=== PATIENT | female | born 1965 | race Caucasian/White ===

== ENCOUNTER 2025-07-03 12:06 | Inpatient (IN) | payer OTHER, SELFPAY ==
[2025-07-03] VITALS (43 sets, daily range): BP systolic 78–128; BP diastolic 40–73; PULSE 63–82; TEMP 36.9–38.4; O2SAT 91–100; BMI 33.8; BMI 34.3
--- NOTE | 2025-07-03 12:36 | ECG_ITS ---
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 Measurements Intervals [place] Rate: 70 P: 78 NV: 146 QRS: 70 QRSD: 68 T: 126 QT: 332 QTc: 352 Interpretive Statements 1100 Sinus rhythm 4068 Nonspecific Twave abnormality 8102 Low QRS voltage in chest leads 8305 Short QTc interval 9150 abnormal ECG No previous ECG available for comparison Electronically Signed On 07-03-2025 18:12:12 EST by ANTONIETTA ROCA M.D.
--- NOTE | 2025-07-03 12:36 | XR_ITS ---
[address] [address] Patient Name: TAO BARNETT MRN: [id number] date: 1965 Sex: F Assigned Patient Location: ER Current Patient Location: ED.MAIN Accession/Order Number: [id number] Exam Date: 07/03/2025 12:53 Report Date: 07/03/2025 13:27 At the request of: RUDY ALTAMIRANO MD Procedure: XR chest 1V PORTABLE AP ERECT CHEST 1255 hours CLINICAL HISTORY: Shortness of breath, fever, chills and weakness COMPARISON: None There is prior median sternotomy. The heart is within normal limits. There is no vascular congestion. The lungs, as visualized, are clear. There is no effusion or pneumothorax. The osseous structures are intact. Subtle scoliotic curvature is noted. XR/XR chest 1V IMPRESSION: NO ACUTE FINDINGS Impression dictated by: Irena Crook M.D. 07/03/2025 1:27 PM Dictation Location: [place] [address] Electronically authenticated by: [id number] Y Date: 07/03/2025 13:27
[2025-07-03 12:52] LABS: Hematocrit 37.1 % (36.0-48.0); Hemoglobin 11.9 g/dL (12.0-16.0); Mean Corpuscular HGB Conc 32.1 g/dL (29.9-35.2); Mean Corpuscular Hemoglobin 29.4 pg (26.7-34.0); Mean Corpuscular Volume 91.6 fL (81.0-99.0); Platelet Count 194 10^3/uL (150-450); Red Blood Count 4.05 10^6/uL (4.20-5.40); White Blood Count 2.4 10^3/uL (4.0-11.0)
[2025-07-03] MEDS: 0.9 % SODIUM CHLORIDE 1,000 ML 1000 ML IV (12:52)
[2025-07-03 13:06] LABS: INR 1.05; Prothrombin Time 11.0 sec (9.0-11.6)
[2025-07-03 13:09] LABS: SARS-CoV-2 Ag NEGATIVE (NEGATIVE)
[2025-07-03 13:10] LABS: Alanine Aminotransferase 30 U/L (14-59); Albumin Globulin Ratio 0.8; Albumin Level 3.6 g/dL (3.4-5.0); Alkaline Phosphatase 105 U/L (46-116); Anion Gap 13.7; Aspartate Amino Transferase 39 U/L (15-37); Blood Urea Nitrogen 20.0 mg/dL (7.0-18.0); Calcium 9.1 mg/dL (8.5-10.1); Carbon Dioxide 27.2 mmol/L (21.0-32.0); Chloride 100 mmol/L (98-107); Estimated GFR (African America 32 (>=60 mL/min/1.73m^2); Estimated GFR (Non-African Ame 27 (>=60 mL/min/1.73m^2); Globulin 4.3 g/dL; Glucose 102 mg/dL (74-106); Lactate/Lactic Acid 1.1 mmol/L (0.4-2.0); Potassium 3.9 mmol/L (3.5-5.1); Sodium 137 mmol/L (136-145); Total Protein 7.9 g/dL (6.4-8.2)
[2025-07-03 13:15] LABS: Band Neutrophils Absolute 0.0 10^3/uL (0.0-0.3); Basophils Abs Manual 0.02 10^3/uL (0.00-0.10); Basophils Percent Manual 1.0 % (0.2-2.0); Eosinophils Absolute Manual 0.00 10^3/uL (0.00-0.70); Eosinophils Percent Manual 0.0 % (0.9-7.0); Lymphocytes Absolute Manual 0.40 10^3/uL (1.20-3.80); Lymphocytes Percent Manual 17.0 % (20.5-60.0); Monocytes Absolute Manual 0.19 10^3/uL (0.30-0.80); Monocytes Percent Manual 8.0 % (1.7-12.0); Segmented Neut Absolute Manual 1.75 10^3/uL (1.4-6.5); Segmented Neutrophils % Manual 73.0 (43.0-75.0)
[2025-07-03 13:58] LABS: NT Pro B Type Natriuretic Pept 310.0 pg/mL (<=900.0)
[2025-07-03 14:27] LABS: Glucose Urine UA NEGATIVE (NEGATIVE)
[2025-07-03 14:44] LABS: Cast Seen? NONE SEEN #/LPF (NONE SEEN); Crystals Seen? None Seen #/HPF (None Seen); Urine Culture Indicated NO
--- NOTE | 2025-07-03 15:11 | ED.WEAKNESS1 ---
HPI - Weakness General Chief complaint: Weakness Stated complaint: CHILLS FEVER WEAKNESS SOB Time Seen by Provider: 07/03/25 12:21 History of Present Illness HPI Narrative: The patient is a 59 years old female presenting to the ER with a concern of dizziness and feeling that she is going to pass out, in addition to no nausea no vomiting but decreased appetite for the last 24 hours and she has been sleeping as well all day yesterday, it was preceded by runny nose. The patient did initially mention some chest pressure but she does not have any pressure at the moment no nausea no vomiting In addition to the dizziness and lightheadedness, the patient mentioned that she was asleep yesterday because she was so tired and not waking up easily. No diarrhea no vomiting Patient takes Bumex because she was told that she retains a lot of fluid but she never had any history of congestive heart failure Patient have a history of carotid disease s/p CABG twice and she also had a stress test done in March that was normal Related Data Home Medications ?Medication ?Instructions ?Recorded ?Confirmed bumetanide 1 mg tablet 1 mg PO BID 07/03/25 07/03/25 clopidogrel 75 mg tablet (Plavix) 75 mg PO DAILY 07/03/25 07/03/25 fluticasone propionate 50 1 inh inhalation BID 07/03/25 07/03/25 mcg/actuation blister powder for inhalation lisinopril 5 mg tablet 5 mg PO DAILY 07/03/25 07/03/25 loratadine 10 mg capsule (Allergy 10 mg PO DAILY PRN allergic 07/03/25 07/03/25 Relief (loratadine)) symptoms rosuvastatin 40 mg tablet 40 mg PO DAILY 07/03/25 07/03/25 semaglutide (weight loss) 0.25 0.25 mg subcut QWEEK 07/03/25 07/03/25 mg/0.5 mL subcutaneous pen injector (Wegovy) Allergies Allergy/AdvReac Type Severity Reaction Status Date / Time atorvastatin Allergy Unknown Unknown Verified 07/03/25 12:19 venlafaxine Allergy Unknown Unknown Verified 07/03/25 12:19 amoxicillin (From Augmentin) AdvReac Severe Vomiting Verified 07/03/25 12:19 clavulanic acid (From AdvReac Severe Vomiting Verified 07/03/25 12:19 Augmentin) tramadol AdvReac Severe suicidal Verified 07/03/25 12:19 Review of Systems ROS Status of ROS 10 or more systems reviewed and unremarkable except as noted in history and below PFSH [facility] Medical History (Updated 07/03/25 @ 15:23 by Katherine Carmichael MD) Hypertension ?I10 - Essential (primary) hypertension (ICD-10) Surgical History (Updated 07/03/25 @ 12:32 by Melisa De La Rosa RN) Status post double vessel coronary artery bypass ?Z95.1 - Presence of aortocoronary bypass graft (ICD-10) History of heart artery stent ?Z95.5 - Presence of coronary angioplasty implant and graft (ICD-10) Social History Little interest or pleasure in doing things: not at all Feeling down, depressed, or hopeless: not at all Exam Narrative Exam Narrative: Nurses notes and vital signs reviewed and patient is not hypoxic. General: Well-appearing and in no apparent distress. Skin: Warm, dry, no pallor noted. No rash. Head: Normocephalic, atraumatic. Neck: Supple, non-tender. Eye: Pupils are equal, round and EOMI. No scleral icterus. Ears, Nose, Mouth, and Throat: TM are clear, no nasal mucosal hypertrophy. Oral mucosa is moist, no posterior oropharynx erythema, uvula is mid-line Cardiovascular: Regular Rate and Rhythm without murmur, gallop or rub. Respiratory: No accessory muscle use or respiratory distress. Lungs are clear to auscultation, no wheezing, rales or rhonchi Musculoskeletal: normal ROM, no calf or popliteal tenderness, no lower extremity edema/swelling GI: Abdomen is soft, non-distended. Normal bowel sounds. No masses appreciated. No tenderness to palpation. No rebound, guarding, or rigidity noted. Neurological: A&O x4. No cranial nerve dysfunction observed. No truncal ataxia. Moves all extremities. Sensation intact. Psychiatric: Cooperative and interactive. Normal mood and affect. Constitutional Vital Signs, click to edit/add: Last Vital Signs Temp 98.4 F 07/03/25 12:12 Pulse 74 07/03/25 15:12 Resp 16 07/03/25 14:40 BP 110/65 07/03/25 15:12 Pulse Ox 96 07/03/25 14:40 O2 Del Method Room Air 07/03/25 12:12 Course Vital Signs Vital signs: Vital Signs Temperature 98.4 F 07/03/25 12:12 Pulse Rate 80 07/03/25 12:12 Respiratory Rate 20 07/03/25 12:12 Blood Pressure 78/40 L 07/03/25 12:12 Pulse Oximetry 98 07/03/25 12:12 Oxygen Delivery Method Room Air 07/03/25 12:12 Temperature 98.4 F 07/03/25 12:12 Pulse Rate 74 07/03/25 15:12 Respiratory Rate 16 07/03/25 14:40 Blood Pressure 110/65 07/03/25 15:12 Pulse Oximetry 96 07/03/25 14:40 Oxygen Delivery Method Room Air 07/03/25 12:12 MDM - Weakness MDM Narrative Medical decision making narrative: The patient EKG in the ER showing sinus rhythm with a heart rate of [address] elevation or depression The patient troponin repeated twice with negative Chest x-ray was normal BNP was not elevated and the CBC and chemistry showed that the patient have leukopenia with a white blood cell 2.4 The patient also have a acute kidney injury with 1.9 creatinine and her baseline usually is normal The patient right now given 1 L of fluid after which she was still orthostatic with blood pressure dropping from 100 systolic to 80 when she standing up The patient COVID and flu test are negative The lactic acid was negative with a 1.1 result The patient does take lisinopril 5 mg which have some effect on blood pressure as well but this is not a new medication With the patient history of coronary artery disease s/p CABG twice the patient will be admitted for observation for possible dehydration Patient case discussed with and he agrees with above-mentioned plan Lab Data Labs: Lab Results 07/03/25 07/03/25 07/03/25 Range/Units 12:40 12:43 14:15 WBC 2.4 L (4.0-11.0) 10^3/uL RBC 4.05 L (4.20-5.40) 10^6/uL Hgb 11.9 L (12.0-16.0) g/dL Hct 37.1 (36.0-48.0) % MCV 91.6 (81.0-99.0) fL MCH 29.4 (26.7-34.0) pg MCHC 32.1 (29.9-35.2) g/dL RDW 13.0 (11.0-15.0) % Plt Count 194 (150-450) 10^3/uL MPV 9.3 L (9.5-13.5) fL Seg Neuts % (Manual) 73.0 (43.0-75.0) Band Neutrophils % 1.0 (0-5) % Lymphocytes % (Manual) 17.0 L (20.5-60.0) % Monocytes % (Manual) 8.0 (1.7-12.0) % Eosinophils % (Manual) 0.0 L (0.9-7.0) % Basophils % (Manual) 1.0 (0.2-2.0) % Neutrophils # (Manual) 1.75 (1.4-6.5) 10^3/uL Band Neutrophils # 0.0 (0.0-0.3) 10^3/uL Lymphocytes # (Manual) 0.40 L (1.20-3.80) 10^3/uL Monocytes # (Manual) 0.19 L (0.30-0.80) 10^3/uL Eosinophils # (Manual) 0.00 (0.00-0.70) 10^3/uL Basophils # (Manual) 0.02 (0.00-0.10) 10^3/uL PT 11.0 (9.0-11.6) sec INR 1.05 Sodium 137 (136-145) mmol/L Potassium 3.9 (3.5-5.1) mmol/L Chloride 100 (98-107) mmol/L Carbon Dioxide 27.2 (21.0-32.0) mmol/L Anion Gap 13.7 BUN 20.0 H (7.0-18.0) mg/dL Creatinine 1.93 H (0.55-1.02) mg/dL Est GFR ( Amer) 32 L (>=60 mL/min/1.73m^2) Est GFR (Non-Af Amer) 27 L (>=60 mL/min/1.73m^2) BUN/Creatinine Ratio 10.4 Glucose 102 (74-106) mg/dL Lactate 1.1 (0.4-2.0) mmol/L Calcium 9.1 (8.5-10.1) mg/dL Total Bilirubin 0.3 (0.2-1.0) mg/dL AST 39 H (15-37) U/L ALT 30 (14-59) U/L Alkaline Phosphatase 105 (46-116) U/L Troponin I High Sens 7.3 (4.0-51.3) pg/mL NT-Pro-B Natriuret Pep 310.0 (<=900.0) pg/mL Total Protein 7.9 (6.4-8.2) g/dL Albumin 3.6 (3.4-5.0) g/dL Globulin 4.3 g/dL Albumin/Globulin Ratio 0.8 Urine Color Lt. yellow (YELLOW) Urine Clarity Clear (CLEAR) Urine pH 8.0 (5.0-9.0) Ur Specific [place] 1.010 (1.005-1.025) Urine Protein 30 A (NEG/TRACE) mg/dL Urine Glucose (UA) Negative (NEGATIVE) mg/dL Urine Ketones Negative (NEGATIVE) mg/dL Urine Occult Blood Negative (NEGATIVE) Urine Nitrite Negative (NEGATIVE) Urine Bilirubin Negative (NEGATIVE) Urine Urobilinogen 0.2 (0.2-1.0) EU/dL Ur Leukocyte Esterase Negative (NEGATIVE) Urine RBC 0-2 (0-2) #/HPF Urine WBC 0-2 A (NONE SEEN) #/HPF Ur Squamous Epith Cells Few A (NONE/RARE) #/LPF Urine Crystals None seen (None Seen) #/HPF Urine Bacteria Trace A (NONE SEEN) #/HPF Urine Casts None seen (NONE SEEN) #/LPF Urine Mucus None seen (NONE SEEN) Ur Culture Indicated? No Influenza Type A Ag Negative Influenza Type B Ag Negative SARS-CoV-2 Ag (CV2AG) Negative (NEGATIVE) 07/03/25 Range/Units 14:28 WBC (4.0-11.0) 10^3/uL RBC (4.20-5.40) 10^6/uL Hgb (12.0-16.0) g/dL Hct (36.0-48.0) % MCV (81.0-99.0) fL MCH (26.7-34.0) pg MCHC (29.9-35.2) g/dL RDW (11.0-15.0) % Plt Count (150-450) 10^3/uL MPV (9.5-13.5) fL Seg Neuts % (Manual) (43.0-75.0) Band Neutrophils % (0-5) % Lymphocytes % (Manual) (20.5-60.0) % Monocytes % (Manual) (1.7-12.0) % Eosinophils % (Manual) (0.9-7.0) % Basophils % (Manual) (0.2-2.0) % Neutrophils # (Manual) (1.4-6.5) 10^3/uL Band Neutrophils # (0.0-0.3) 10^3/uL Lymphocytes # (Manual) (1.20-3.80) 10^3/uL Monocytes # (Manual) (0.30-0.80) 10^3/uL Eosinophils # (Manual) (0.00-0.70) 10^3/uL Basophils # (Manual) (0.00-0.10) 10^3/uL PT (9.0-11.6) sec INR Sodium (136-145) mmol/L Potassium (3.5-5.1) mmol/L Chloride (98-107) mmol/L Carbon Dioxide (21.0-32.0) mmol/L Anion Gap BUN (7.0-18.0) mg/dL Creatinine (0.55-1.02) mg/dL Est GFR ( Amer) (>=60 mL/min/1.73m^2) Est GFR (Non-Af Amer) (>=60 mL/min/1.73m^2) BUN/Creatinine Ratio Glucose (74-106) mg/dL Lactate (0.4-2.0) mmol/L Calcium (8.5-10.1) mg/dL Total Bilirubin (0.2-1.0) mg/dL AST (15-37) U/L ALT (14-59) U/L Alkaline Phosphatase (46-116) U/L Troponin I High Sens 6.9 (4.0-51.3) pg/mL NT-Pro-B Natriuret Pep (<=900.0) pg/mL Total Protein (6.4-8.2) g/dL Albumin (3.4-5.0) g/dL Globulin g/dL Albumin/Globulin Ratio Urine Color (YELLOW) Urine Clarity (CLEAR) Urine pH (5.0-9.0) Ur Specific [place] (1.005-1.025) Urine Protein (NEG/TRACE) mg/dL Urine Glucose (UA) (NEGATIVE) mg/dL Urine Ketones (NEGATIVE) mg/dL Urine Occult Blood (NEGATIVE) Urine Nitrite (NEGATIVE) Urine Bilirubin (NEGATIVE) Urine Urobilinogen (0.2-1.0) EU/dL Ur Leukocyte Esterase (NEGATIVE) Urine RBC (0-2) #/HPF Urine WBC (NONE SEEN) #/HPF Ur Squamous Epith Cells (NONE/RARE) #/LPF Urine Crystals (None Seen) #/HPF Urine Bacteria (NONE SEEN) #/HPF Urine Casts (NONE SEEN) #/LPF Urine Mucus (NONE SEEN) Ur Culture Indicated? Influenza Type A Ag Influenza Type B Ag SARS-CoV-2 Ag (CV2AG) (NEGATIVE) Discharge Plan Discharge Chief Complaint: Weakness Clinical Impression: Acute dehydration, CASEY (acute kidney injury), Hypotension Patient Disposition: Admitted as Observation
--- NOTE | 2025-07-03 15:24 | PM.IMHP1 ---
Internal Medicine - H&P: HPI History of Present Illness Chief complaint: CHILLS FEVER WEAKNESS SOB Narrative: Guerline Danielson is a 59 y/o F, h/o CAD s/p stent placement in 2023, s/p CABG, reported recent stress test, presented to [facility] emergency room on 07/03/2025 with generalized weakness, found to have CASEY and orthostatic hypotension prompting request for medical admission. On assessment at bedside in the emergency room, patient resting comfortably in bed, states developed dry cough, runny nose, and generalized fatigue over the past 24 hours with significant somnolence, dizziness and lightheadedness prompting evaluation in the emergency room. Denies any nausea vomiting or diarrhea, has had slight chest heaviness/fatigue with inspiration but no chest pressure or pain. No dysuria. Has been prescribed Bumex without any form diagnosis of congestive heart failure, has a history of postoperative atrial fibrillation which patient states was resolved after clipping and does not require anticoagulation. In the emergency room, WBC 2.4, hemoglobin 11.9, platelet count 194, band neutrophils 1%, sodium 137, potassium 3.9, BUN 20, creatinine 1.93, lactate 1.1, NT BNP 310, UA without evidence of infection, influenza type A B and COVID-negative, chest x-ray with no acute findings. Review of Systems ROS Status of ROS 10 or more systems reviewed and unremarkable except as noted in history and below [facility] Medical History (Updated 07/03/25 @ 16:28 by JOSE RAFAEL ROMAN MD) Atrial fibrillation ?I48.91 - Unspecified atrial fibrillation (ICD-10) Hypertension ?I10 - Essential (primary) hypertension (ICD-10) Surgical History (Updated 07/03/25 @ 15:33 by SILVANA SMART) History of appendectomy ?Z90.49 - Acquired absence of other specified parts of digestive tract (ICD-10) History of bladder suspension procedure ?Z98.890 - Other specified postprocedural states (ICD-10) ?Z87.448 - Personal history of other diseases of urinary system (ICD-10) History of partial hysterectomy ?Z90.711 - Acquired absence of uterus with remaining cervical stump (ICD-10) Status post double vessel coronary artery bypass ?Z95.1 - Presence of aortocoronary bypass graft (ICD-10) History of heart artery stent ?Z95.5 - Presence of coronary angioplasty implant and graft (ICD-10) Social History Little interest or pleasure in doing things: not at all Feeling down, depressed, or hopeless: not at all Meds Home Medications and Allergies Home Medications ?Medication ?Instructions ?Recorded ?Confirmed ?Type bumetanide 1 mg tablet 1 mg PO BID 07/03/25 07/03/25 History clopidogrel 75 mg tablet (Plavix) 75 mg PO DAILY 07/03/25 07/03/25 History fluticasone propionate 50 1 inh inhalation BID 07/03/25 07/03/25 History mcg/actuation blister powder for inhalation lisinopril 5 mg tablet 5 mg PO DAILY 07/03/25 07/03/25 History loratadine 10 mg capsule (Allergy 10 mg PO DAILY PRN allergic 07/03/25 07/03/25 History Relief (loratadine)) symptoms rosuvastatin 40 mg tablet 40 mg PO DAILY 07/03/25 07/03/25 History semaglutide (weight loss) 0.25 0.25 mg subcut QWEEK 07/03/25 07/03/25 History mg/0.5 mL subcutaneous pen injector (iPowowgovEgodeus) Allergies Allergy/AdvReac Type Severity Reaction Status Date / Time atorvastatin Allergy Unknown Unknown Verified 07/03/25 12:19 venlafaxine Allergy Unknown Unknown Verified 07/03/25 12:19 amoxicillin (From Augmentin) AdvReac Severe Vomiting Verified 07/03/25 12:19 clavulanic acid (From AdvReac Severe Vomiting Verified 07/03/25 12:19 Augmentin) tramadol AdvReac Severe suicidal Verified 07/03/25 12:19 Exam Narrative Exam Narrative: General: cooperative and tired appearing Orientation: alert, awake and oriented x3 Head: normal to inspection Neck: normal visual inspection Cardio: no JVD, regular rate, regular rhythm Chest palpation & inspection: normal inspection of the chest Resp Effort & Inspection: normal respiratory effort Abd: soft, non-tender, non-distended Extremities: Warm well perfused, trace 1+ bilateral pitting edema in LE Constitutional Vital Signs, click to edit/add: Last Vital Signs Temp 98.4 F 07/03/25 12:12 Pulse 74 07/03/25 15:12 Resp 16 07/03/25 14:40 BP 110/65 07/03/25 15:12 Pulse Ox 96 07/03/25 14:40 O2 Del Method Room Air 07/03/25 12:12 Internal Medicine - H&P: Reslt Labs Labs: Short CBC 07/03/25 Range/Units 12:40 WBC 2.4 L (4.0-11.0) 10^3/uL Hgb 11.9 L (12.0-16.0) g/dL Hct 37.1 (36.0-48.0) % Plt Count 194 (150-450) 10^3/uL BMP 07/03/25 12:40 Sodium 137 Potassium 3.9 Chloride 100 Carbon Dioxide 27.2 BUN 20.0 H Creatinine 1.93 H Glucose 102 Calcium 9.1 Liver Function 07/03/25 Range/Units 12:40 Total Bilirubin 0.3 (0.2-1.0) mg/dL AST 39 H (15-37) U/L ALT 30 (14-59) U/L Alkaline Phosphatase 105 (46-116) U/L Albumin 3.6 (3.4-5.0) g/dL Urine 07/03/25 Range/Units 14:15 Urine Color Lt. yellow (YELLOW) Urine Clarity Clear (CLEAR) Urine pH 8.0 (5.0-9.0) Ur Specific [place] 1.010 (1.005-1.025) Urine Protein 30 A (NEG/TRACE) mg/dL Urine Glucose (UA) Negative (NEGATIVE) mg/dL Assessment and Plan Assessment and Plan (1) Hypotension: (2) CASEY (acute kidney injury): (3) Acute dehydration: (4) Hypertension: (5) Status post double vessel coronary artery bypass: (6) History of heart artery stent: (7) Viral URI: Plan Guerline Danielson is a 59 y/o F, h/o CAD s/p stent placement in 2023, s/p CABG with ALAYNA clipping, reported recent stress test, presented to [facility] emergency room on 07/03/2025 with generalized weakness, found to have CASEY and orthostatic hypotension prompting request for medical admission. 1. Hypotension in the setting of likely viral URI - In the emergency room, WBC 2.4, hemoglobin 11.9, platelet count 194, band neutrophils 1%, sodium 137, potassium 3.9, BUN 20, creatinine 1.93, lactate 1.1, NT BNP 310, UA without evidence of infection, influenza type A B and COVID-negative, chest x-ray with no acute findings. - Hold Lasix and plan to discontinue Bumex - Supportive care with additional 1 L LR over 4 hours - Draw blood cultures given leukopenia, monitor overnight for fever - Check echocardiogram 2. h/o CAD s/p stent placement in 2023, s/p CABG with ALAYNA clipping in 05/2024, reported recent stress test - Reports stent placement was in 2023, was previously on brillinta but now on plavix monotherapy - nuclear stress test on 03/19/25 showed no wall motion abnormalities or inducible ischemia Diet: Cardiac Daily Labs: CBC, BMP Lines/Drains: PIV DVT ppx: Lovenox Code status: Full Status: inpatient for rehydration, hypotension
[2025-07-03] MEDS: ACETAMINOPHEN 500 MG TABLET PO (19:32)
[2025-07-03] MEDS: ENOXAPARIN SODIUM 30 MG/0.3 ML SYRINGE SUBQ (20:25)
[2025-07-03] MEDS: CLOPIDOGREL BISULFATE 75 MG TABLET PO (20:25)
[2025-07-04] VITALS (16 sets, daily range): BP systolic 108–158; BP diastolic 62–75; PULSE 59–81; TEMP 36.9–38.1; O2SAT 93–98; BMI 34.3
[2025-07-04] MEDS: ACETAMINOPHEN 325 MG TABLET 650 MG PO (04:33)
[2025-07-04 05:19] LABS: Hematocrit 30.2 % (36.0-48.0); Hemoglobin 9.9 g/dL (12.0-16.0); Mean Corpuscular HGB Conc 32.8 g/dL (29.9-35.2); Mean Corpuscular Hemoglobin 30.0 pg (26.7-34.0); Mean Corpuscular Volume 91.5 fL (81.0-99.0); Platelet Count 136 10^3/uL (150-450); Red Blood Count 3.30 10^6/uL (4.20-5.40); White Blood Count 2.3 10^3/uL (4.0-11.0)
[2025-07-04 05:32] LABS: Anion Gap 7.8; Blood Urea Nitrogen 14.0 mg/dL (7.0-18.0); Calcium 8.1 mg/dL (8.5-10.1); Carbon Dioxide 23.2 mmol/L (21.0-32.0); Chloride 109 mmol/L (98-107); Estimated GFR (African America 53 (>=60 mL/min/1.73m^2); Estimated GFR (Non-African Ame 43 (>=60 mL/min/1.73m^2); Glucose 108 mg/dL (74-106); Magnesium 2.2 mg/dL (1.8-2.4); Potassium 4.0 mmol/L (3.5-5.1); Sodium 136 mmol/L (136-145)
[2025-07-04 05:48] LABS: Segmented Neut Absolute Manual 1.72 10^3/uL (1.4-6.5); Segmented Neutrophils % Manual 75.0 (43.0-75.0)
[2025-07-04 05:49] LABS: Atypical Lymphocytes % Manual 1.0 %; Atypical Lymphocytes Abs Man 0.02; Basophils Abs Manual 0.00 10^3/uL (0.00-0.10); Basophils Percent Manual 0.0 % (0.2-2.0); Eosinophils Absolute Manual 0.00 10^3/uL (0.00-0.70); Eosinophils Percent Manual 0.0 % (0.9-7.0); Lymphocytes Absolute Manual 0.36 10^3/uL (1.20-3.80); Lymphocytes Percent Manual 16.0 % (20.5-60.0); Monocytes Absolute Manual 0.18 10^3/uL (0.30-0.80); Monocytes Percent Manual 8.0 % (1.7-12.0)
--- NOTE | 2025-07-04 10:07 | CM.NOTE ---
Rounds made with Dr. Rosales, discussed plan of care with pt. Plan is for discharge today once ECHO results and throat swab results are received.
--- OUTSIDE RECORDS SUMMARY | 2025-07-04 12:59 | XMS_ITS | Clinical Summary ---
Author Organization [employer] tem Address [id number] [address] [place] [address] Care Team Providers Care House Worker Name Role Phone No Pcp, No Pcp Primary Care Provider Unavailabl e Allergies Active AllergyReactionsCriticalityNoted DateCommentsAtorvastatinOther (See Comments)01/12/2018 myalgia Amoxicillin-Pot BxcqhdwfkscGaiwvvrq10/29/0179Omozhtdp59/21/2020 Caused her to become suicidal Xiqugvaddfu02/16/2023 Medications MedicationSigDispense QuantityRefillsLast FilledStart DateEnd DateStatus loratadine (CLARITIN) 10 mg tablet Take 1 tablet (10 mg total) by mouth as needed for allergies.Active ezetimibe (ZETIA) 10 mg tablet Take 1 tablet (10 mg total) by mouth nightly.Active fluticasone propionate (FLONASE) 50 mcg/actuation nasal spray Administer 1 spray into each nostril as needed for allergies.Active rosuvastatin (CRESTOR) 40 mg tablet Take 1 tablet (40 mg total) by mouth in the morning.4Active potassium chloride (KLOR-CON M 10) 10 MEQ CR tablet Take 1 tablet (10 mEq total) by mouth in the morning.5Active clopidogreL (PLAVIX) 75 mg tablet Take 1 tablet (75 mg total) by mouth in the morning. 90 tablet 5Active lisinopriL (PRINIVIL,ZESTRIL) 5 mg tablet Indications:Primary hypertensionTake 1 tablet (5 mg total) by mouth in the morning. 30 tablet 1105Active bumetanide (BUMEX) 1 mg tablet Take 1 tablet (1 mg total) by mouth 2 (two) times a day before meals. 60 tablet 5Active semaglutide, weight loss, (WEGOVY) 0.5 mg/0.5 mL pen injector Indications:Coronary artery disease of [place] artery of [place] heart with stable angina pectoris,Coronary artery disease involving [place] coronary artery of [place] heart with refractory angina pectoris,ST elevation myocardial infarction involving right coronary artery (CMS-HCC),History of percutaneous coronary interventionInject 0.5 mL (0.5 mg total) under the skin every 7 days. 2 mL 5Active semaglutide, weight loss, (WEGOVY) 0.25 mg/0.5 mL pen injector Indications:Coronary artery disease of [place] artery of [place] heart with stable angina pectoris,Coronary artery disease involving [place] coronary artery of [place] heart with refractory angina pectoris,ST elevation myocardial infarction involving right coronary artery (CMS-HCC),History of percutaneous coronary interventionInject 0.5 mL (0.25 mg total) under the skin every 7 days. 2 mL Discontinued(Dose adjustment) Active Problems ProblemNoted DateDiagnosed DateChest pain in adult03/18/2025Long term (current) use of uihahlammbbzcd34/31/2025trial fibrillation, unspecified type06/08/2024 Chest pain, unspecified type06/05/2024cute blood loss mkcjka6405/29/2024cute respiratory failure with irsizax9405/29/2024Hemodynamic whwcfrfyqog63/13/2024 Volume kxucgcwlr47/13/2024AD (coronary artery disease)05/24/2024oronary artery disease involving [place] coronary artery with refractory angina pectoris 05/14/20240114Szawymsik48/10/2018History of suicide vdpniia5501/05/2018Prediabetes 01/05/2018*OBGYN Prcvriwckm88/15/2017Abnormal cytological findings in specimens from other organs, systems and owkpmcs3106/03/2016Encounter for gynecological examination without abnormal gdfcpgu6106/03/2016Stress xkfgquwzeaqz58/18/2016 Rquldvygxdtuo38/18/8730Uujrlwdovycfac87/18/9034Xrgkwszmgctq18/18/2016Heart ayfras1008/03/2015Mixed umfqeltlthhz94/18/4870Tbkcdtnw88/18/1320Wvgzfpna69/18/2016 Cyst of ovary06/03/2016Nicotine mbfcexfrfa76/18/2016Anxiety Resolved Problems ProblemNoted DateDiagnosed DateResolved DateBipolar affective ilzkkcut50/18/2016 09/27/2016 Encounters DateTypeDepartmentCare HcltDfzwifafsvh54/09/2025Telephone [facility] Medication Management [address] [place] [address] Jv Parra [facility] 06/10/2025Telephone [facility] Medication Management [address] [place] [address] Jv Parra, [facility] 06/04/2025 8:15 AM ESTClinical Support [facility] Medication Management [address] [place] [address] Coronary artery disease of [place] artery of [place] heart with stable angina pectoris [I25.118] (Primary Dx); Coronary artery disease involving [place] coronary artery of [place] heart with refractory angina pectoris; ST elevation myocardial infarction involving right coronary artery ([facility]); History of percutaneous coronary sxgzoydgugcd14/17/5387Dbzbte52/11/2025Orders Only [facility] [address] [place] [address] Lisandra Iniguez, RN 05/26/20259895Zibcyg60/30/2025 7:15 AM EDTOffice Visit [facility] [address] [place] [address] Dwayne Altman, BIAS CUTTING MACHINE OPERATOR VERTICAL-JEROD Coronary artery disease involving [place] coronary artery of [place] heart without angina pectoris (Primary Dx); Primary hypertension; Atrial fibrillation, unspecified type ([facility]); Mixed vwtelnbdkusspo40/30/2025Telephone [facility] Medication Management [address] [place] [address] Dayana Anthony MA 05/15/20259565Wqpwoq82/28/4315Hlzfpi12/21/2025Results Follow-Up [facility] [address] [place] [address] Kristyn Herron LPN Basic Metabolic Panel, BNP, Magnesium, Lipid panel05/01/20258650Rhcsiu97/02/2025 7:45 AM EDTOffice Visit [facility] [address] [facility] [address] [place] [address] Dwayne Altman APRN-[employer] E[employer]OR Coronary artery disease involving [place] coronary artery of [place] heart without angina pectoris (Primary Dx); Atrial fibrillation, unspecified type ([facility]); Primary hypertension; Mixed hyperlipidemia; Coronary artery disease involving coronary bypass graft of [place] heart without angina pbuhhyrg87/01/5124Nxpwoe92/24/1035Fmpwej18/22/2025Telephone [facility] [address] [facility] [address] [place] [address] Kristyn Herron LPN retaining waterfrom Last 3 Months Immunizations ImmunizationAdministration DatesNext DueInfluenza (IM) Preservative Free 05/19/2008Influenza, Qrgexqpepvl64/28/2019Pneumococcal Vsrfkmplesrsia80/19/2012 Tdap01/12/2018,12/28/2007 Family History * Patient is adopted Medical HistoryRelationNameCommentsCoronary artery diseaseMaternal Grandfather CancerMaternal GrandmotherNeoplasmMaternal GrandmotherOvarian cancerMaternal GrandmotherCancerMotherNeoplasmMothermalignantOvarian cancerMotherRelationName StatusCommentsMaternal GrandfatherMaternal GrandmotherMother Social History Tobacco UseTypesPacks/DayYears UsedDateSmoking Tobacco: FormerCigarettes Smokeless Tobacco: Never Tobacco Cessation:Counseling Given: Not Answered Alcohol UseStandard Drinks/WeekCommentsYes0 (1 standard drink = 0.6 oz pure alcohol)[facility] UtilitiesAnswerDate RecordedIn the past 12 months has the electric, gas, oil, or water company threatened to shut off services in your home?No06/05/2024UDIT-CAnswerDate RecordedQ1: How often do you have a drink containing alcohol?2-4 times a month06/05/2024Q2: How many drinks containing alcohol do you have on a typical day when you are drinking?1 or Q3: How often do you have six or more drinks on one occasion?Never06/05/2024HQ-2 AnswerDate RecordedTotal Xirun25008/05/2023RAPARE - TransportationAnswerDate RecordedIn the past 12 months, has lack of transportation kept you from medical appointments or from getting medications?No06/05/2024In the past 12 months, has lack of transportation kept you from meetings, work, or from getting things needed for daily living?No06/05/2024Housing InstabilityAnswerDate RecordedAre you worried or concerned that in the next two months you may not have stable housing that you own, rent or stay in as a part of a household?No06/05/2024 ChildcareAnswerDate VrxcjlqdYaukqtxmlRpnkqnm39/11/2019EmploymentAnswerDate SrcmyeglPbxzjihkfdFzpfgzc76/11/2019Hunger ScreeningAnswerDate RecordedWithin the past 12 months we worried whether our food would run out before we got money to buy more.Never True03/18/2025Within the past 12 months the food we bought just didn't last and we didn't have money to get more.Never True03/18/2025Purpose - LifeAnswerDate RecordedPurpose and direction in jgnjIgwybaf30/10/2021 CommentsNoSex and Gender InformationValueDate RecordedSex Assigned at BirthNot on fileLegal JjbNnhtkv49/04/2015 7:30 PM EDTGender IdentityNot on fileSexual OrientationNot on file Last Filed Vital Signs Vital SignReadingTime TakenCommentsBlood Thkwtfru178/7311 8:14 AM EST Aenye930706/04/2025 8:14 AM JZRAvsxiybqcew95.1 ??C (98.8 ??F)03/19/2025 12:10 PM EDTRespiratory Uftn381303/19/2025 12:10 PM EDTOxygen Hltzvsttvl24%05/15/2025 7:02 AM EDTInhaled Oxygen Concentration--Btzxiz42.1 kg (189 lb 12.8 oz)06/04/2025 8:14 AM YPEFvoyqa257.5 cm (5' 2.01 )05/15/2025 7:02 AM EDTBody Mass Index34.71 05/15/2025 7:02 AM EDT Plan of Treatment DateTypeDepartmentCare Team (Latest Contact Info)Ndymkcokqzc98/05/2026 2:00 PM ESTOffice Visit [facility] [address] [place] [address] Facundo Cabrera PA-C [address] [place] [address] Health MaintenanceDue DateLast DoneCommentsAdult BMI Follow Up Plan10/15/1985 Zoster (Shingles) Vaccine (1 of 2)10/15/2017Influenza Ftwkjyw8103/17/2025 05/13/2019, 05/19/2008Depression Jbprpgqly94Tobacco Screening dult BMI Hmnwvrspu61DTaP,Tdap and Td Vaccines (3 - Td or Tdap), 12/28/2007 Goals GoalPatient Goal TypeAssociated ProblemsRecent ProgressPatient-Stated?Author <enter goal here> Key Mckeon, RN Note: Evaluation of progress towards goal: plan home with homecare and family support vs short snf stay Medical Devices ImplantedTypeAreaManufacturerDevice IdentifierShelf Expiration DateModel / Serial / LotDevice Clsr 45mm Penditure Tip First Slf Closing Strl - [id number] Implanted:Qty: 1 on 05/29/2024 [facility] ClipN/A: HeartMEDTRONIC HEART07/03/2024LAAC45 / / [id number]:left atrial appendage Procedures Procedure NamePriorityDate/TimeAssociated DiagnosisCommentsLIPID PROFILERoutine 05/01/2025 7:52 AM EDT Mixed hyperlipidemia YADVNRULYCxqaggd95/16/2025 7:52 AM EDT Coronary artery disease involving [place] coronary artery of [place] heart without angina pectoris B-TYPE NATRIURETIC CRFNFWNFzhtpzs43/16/2025 7:52 AM EDT Coronary artery disease involving [place] coronary artery of [place] heart without angina pectoris BASIC METABOLIC ZSIUQXscxfpj35/16/2025 7:52 AM EDT Coronary artery disease involving [place] coronary artery of [place] heart without angina pectoris BASIC METABOLIC FMNGVFyctntp63/24/2025 8:09 AM EDT Atrial fibrillation, unspecified type (CMS-HCC) from Last 3 Months Results * BNP (05/01/2025 7:52 AM EDT)ComponentValueRef RangeTest MethodAnalysis Time Performed AtPathologist GmpimogspBGG84<=100 pg/mL05/01/2025 9:14 AM [facility] LABORATORYSpecimen (Source)Anatomical Location / Laterality Collection Method / VolumeCollection TimeReceived TimeBloodVenous blood / UnknownVenipuncture / Ctquyhc3705/01/2025 7:52 AM EDT1 7:52 AM EDT Narrative Authorizing ProviderResult TypeResult StatusMischell Agapito BIAS CUTTING MACHINE OPERATOR VERTICAL-CNPLAB BLOOD ORDERABLESFinal ResultPerforming OrganizationAddressCity/State/ZIP CodePhone Number [facility] [address] [place] [address], * Magnesium (05/01/2025 7:52 AM EDT)ComponentValueRef RangeTest MethodAnalysis TimePerformed AtPathologist SignatureMAGNESIUM2.41.8 - 2.6 mg/dL05/01/2025 11:43 AM [facility] LABORATORYSpecimen (Source)Anatomical Location / LateralityCollection Method / VolumeCollection TimeReceived Time BloodVenous blood / UnknownVenipuncture / Ggnvynx7105/01/2025 7:52 AM EDT 05/01/2025 7:52 AM EDT Narrative Authorizing ProviderResult TypeResult StatusMischUpstate Golisano Children's Hospitalsser BIAS CUTTING MACHINE OPERATOR VERTICAL-CNPLAB BLOOD ORDERABLESFinal ResultPerforming OrganizationAddressCity/State/ZIP CodePhone Number [facility] [address] [place] [address], * (ABNORMAL) Lipid panel (05/01/2025 7:52 AM EDT)ComponentValueRef RangeTest MethodAnalysis TimePerformed AtPathologist SsnohlgaeEXEDEIZESHS101(L)150 - 200 mg/dL05/01/2025 11:43 AM [facility] LABORATORYTRIGLYCERIDE 181(H)27 - 150 mg/dL05/01/2025 11:43 AM [facility] HDL IWTLJCNVRDY52>39 mg/dL05/01/2025 11:43 AM [facility] LABORATORYComment: HDL <40 mg/dL - High Risk HDL > or = 40mg/dL- Desirable HDL >60 mg/dL - Negative Risk LDL (CALC)62<130 mg/dL05/01/2025 11:43 AM [facility] Comment: LDL <100 mg/dL - Desirable LDL >160 mg/dL - High Risk CHOLESTEROL:HDL3.01.0 - 5.010 11:43 AM [facility] LABORATORYVERY LOW IUGVUSVIWIE78(H)0 - 30 mg/dL05/01/2025 11:43 AM [facility] LABORATORYSpecimen (Source)Anatomical Location / Laterality Collection Method / VolumeCollection TimeReceived TimeBloodVenous blood / UnknownVenipuncture / Gkplqrh2105/01/2025 7:52 AM EDT1 7:52 AM EDT Narrative Authorizing ProviderResult TypeResult StatusMischell Agapito BIAS CUTTING MACHINE OPERATOR VERTICAL-CNPLAB BLOOD ORDERABLESFinal ResultPerforming OrganizationAddressCity/State/ZIP CodePhone Number [facility] [address] [place] [address], * (ABNORMAL) Basic Metabolic Panel (05/01/2025 7:52 AM EDT) Only the most recent of2 resultswithin the time period is included. ComponentValueRef RangeTest MethodAnalysis TimePerformed AtPathologist Signature SNYCQI389753 - 146 mmol/L1 11:43 AM [facility] LABORATORYPOTASSIUM4.33.5 - 5.0 mmol/L1 11:43 AM [facility] MKXGHPJUMIXQYMFBXA01731 - 109 mmol/L1 11:43 AM [facility] LABORATORYCARBON CISKISY45(H)22 - 32 mmol/L1 11:43 AM [facility] LABORATORYANION GAP65 - 15 mmol/L1 11:43 AM [facility] LABORATORYBLOOD UREA OBROZOLC193 - 23 mg/dL 05/01/2025 11:43 AM [facility] LABORATORYCREATININE1.18(H)0.40 - 1.00 mg/dL05/01/2025 11:43 AM [facility] LABORATORYComment: METHOD TRACEABLE TO IDLA DOZHAWMMDSWPWKS769(H)65 - 99 mg/dL05/01/2025 11:43 AM [facility] LABORATORYCALCIUM9.88.5 - 10.5 mg/dL05/01/2025 11:43 AM [facility]ORYEGFR Non-Race Pwotelhmu93(L)>=60 ml/min/1.73sq.m1 11:43 AM [facility] Comment: Reported eGFR is based on the CKD-EPI 2020 equation that does not use a race coefficient. Specimen (Source)Anatomical Location / LateralityCollection Method / Volume Collection TimeReceived TimeBloodVenous blood / UnknownVenipuncture / Unknown 05/01/2025 7:52 AM EDT1 7:52 AM EDT Narrative Authorizing ProviderResult TypeResult StatusMischmarc Agapito BIAS CUTTING MACHINE OPERATOR VERTICAL-CNPLAB BLOOD ORDERABLESFinal ResultPerforming OrganizationAddressCity/State/ZIP CodePhone Number [facility] [address] [place] [address], [place] [phone] from Last 3 Months Insurance Advance Directives TypeDate RecordedPatient RepresentativeExplanationDurable Power of Wire Weaving Loom Setter 06/10/2024 8:28 AM * Full Code (Latest Code Status on File) Date ActivatedDate InactivatedComments03/18/2025 11:56 PM03/19/2025 5:10 PM * Full Code Date ActivatedDate SqfadvblvxeYmjgtqii12/20/2024 9:23 AM06/08/2024 5:53 PM * Full Code Date ActivatedDate EqxvbbiyrpyNcommgfm79/11/2024 9:10 AM06/04/2024 3:14 PM Care Teams Team MemberRelationshipSpecialtyStart DateEnd Date No Pcp, [place] [address] PCP - GeneralFamily Medicine03/18/25
--- OUTSIDE RECORDS SUMMARY | 2025-07-04 12:59 | XMS_ITS | Clinical Summary ---
Author Organization [facility] Address [address], [address] [place] [address] Care Team Providers Care Medical Record Assistant Name Role Phone Unavailable Primary Care Provider Unavailabl e Allergies Active AllergyReactionsCriticalityNoted DateCommentsAmoxicillin-Pot Clavulanate 12/30/2022 GI symptoms Zjsvgdhwxpz29/16/2023torvastatinOther (See Comments)01/12/2018 myalgia CrenmerKayntixhjp65/24/2024 Nausea Medications MedicationSigDispense QuantityRefillsLast FilledStart DateEnd DateStatus loratadine (CLARITIN) 10 MG tablet Take 1 tablet by mouth dailyActive fluticasone (FLONASE) 50 MCG/ACT nasal spray Indications:Seasonal allergic rhinitis, unspecified trigger2 sprays by Nasal route daily as needed for Rhinitis or Allergies 1 each ctive Additional Information Patient not taking.Reported on 11/05/2024 nitroGLYCERIN (NITROSTAT) 0.[address] 1 tablet under the tongue every 5 minutes as needed for Chest pain up to max of 3 total doses. If no relief after 1 dose, call 911. 25 tablet ctive fluconazole (DIFLUCAN) 150 MG tablet as hodjpe7603/20/2024ctive warfarin (COUMADIN) 2 MG tablet Take by mouth06/08/2024ctive amLODIPine (NORVASC) 10 MG tablet Take 1 tablet by mouth daily 90 tablet 5Active clopidogrel (PLAVIX) 75 MG tablet Take 1 tablet by mouth daily 90 tablet 5Active furosemide (LASIX) 20 MG tablet Take 1 tablet by mouth 2 times daily Take lasix 20 mg po bid x 5 days then 20 mg po daily 90 tablet 5Active apixaban (ELIQUIS) 5 MG TABS tablet Take 1 tablet by mouth 2 times daily 180 tablet 5Active carvedilol (COREG) 3.125 MG tablet Take 1 tablet by mouth 2 times daily 60 tablet 5Active ezetimibe (ZETIA) 10 MG tablet TAKE 1 TABLET BY MOUTH ONCE NIGHTLY 30 tablet 1105Active rosuvastatin (CRESTOR) 40 MG tablet TAKE ONE TABLET BY MOUTH EVERY EVENING 30 tablet 905Active potassium chloride (KLOR-CON M) 10 MEQ extended release tablet TAKE 1 TABLET BY MOUTH 2 TIMES A DAY 180 tablet 5Active Active Problems ProblemNoted DateDiagnosed DateAcute myocardial rzwiakowzx61/18/4465C57 zfplchnyuj11/21/2023On hormone replacement uxlqgye0012/30/2022llergic rhinitis 09/06/20196542Vsdcbnjwrnvgff44/22/2018Heart ourrtb4801/05/2018Vitamin D deficiency 01/05/20188862Mpuxlfnzuwc55/22/2018History of suicide pjrvvvd4101/05/2018 Resolved Problems ProblemNoted DateDiagnosed DateResolved DateNausea and tpqdaave33/22/2018 01/12/20189424Uqzsjdpn22/22/LLQ painDizziness Weight loss, zdbmctzedcgic04History of jmbzrczpbr85Smoker unmotivated to quit Encounters DateTypeDepartmentCare SpmlBnlasqeygkm31/17/2025Refill [place] 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 - [place] [address], [address] [place] [address] Regina Ramos, 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 Medication Refillfrom Last 3 Months Immunizations ImmunizationAdministration DatesNext DueInfluenza Vaccine, unspecified djbpvaesbse60/03/2008Influenza Virus Dbbusxs5705/13/2019Pneumococcal, PPSV23, PNEUMOVAX 23, (age 2y+), SC/IM, 0.5mL08/04/2011TDaP, ADACEL (age 10y-64y), BOOSTRIX (age 10y+), IM, 0.5mL01/12/2018,12/28/2007 Family History * Patient is adopted Medical HistoryRelationNameCommentsHeart DiseaseMaternal GrandfatherNonOther Maternal GrandfatherNonAlcholismCancerMaternal GrandmotherNooviarianAlcohol AbuseMotherNoCancerPaternal GrandmotherNouterianRelationNameStatusComments Maternal GrandfatherNonMaternal GrandmotherNoMotherNoPaternal GrandmotherNo Social History Tobacco UseTypesPacks/DayYears UsedDateSmoking Tobacco: JaphdiAmdjfmfymy666.6 1999 - 02/08/2023Smokeless Tobacco: Never Tobacco Cessation:Counseling Given: Not Answered Alcohol UseStandard Drinks/WeekCommentsYes0 (1 standard drink = 0.6 oz pure alcohol)[facility] UtilitiesAnswerDate RecordedIn the past 12 months has the [employer], oil, or water [place] threatened to shut off services in your home?No05/03/2024Humiliation, Afraid, Rape, and Kick questionnaireAnswerDate RecordedWithin the last year, have you been afraid of your partner or ex-partner?No12/28/2022Within the last year, have you been humiliated or emotionally abused in other ways by your partner or ex-partner?No12/28/2022 Within the last year, have you been kicked, hit, slapped, or otherwise physically hurt by your partner or ex-partner?No12/28/2022Within the last year, have you been raped or forced to have any kind of sexual activity by your part ner or ex-partner?No12/28/2022Overall Financial Resource Strain (CARDIA)Answer Date RecordedHow hard is it for you to pay for the very basics like food, housing, medical care, and heating?Not hard at all12/30/2022HQ-2AnswerDate RecordedPHQ-9 Total Clbko578Exercise Vital SignAnswerDate RecordedOn average, how many days per week do you engage in moderate to strenuous exercise (like a brisk walk)?0 days12/28/2022Minutes of Exercise per SessionNot on file 12/28/2022Hunger Vital SignAnswerDate RecordedWithin the past 12 months, you worried that your food would run out before you got the money to buymore.Never true05/03/2024Within the past 12 months, the food you bought just didn't last and you didn't have money to get more.Never true05/03/2024RAPARE - TransportationAnswerDate RecordedIn the past 12 months, has lack of transportation kept you from medical appointments or from getting medications?No 05/03/2024In the past 12 months, has lack of transportation kept you from meetings, work, or from getting things needed for daily living?No05/03/2024 Housing Stability Vital SignAnswerDate RecordedUnable to Pay for Housing in the Last YearNot on file12/30/2022Number of Places Lived in the Last YearNot on file 12/30/2022In the last 12 months, was there a time when you did not have a steady place to sleep or slept in [facility] (including now)?No12/30/2022Housing Stability Vital SignAnswerDate RecordedIn the last 12 months, was there a time when you were not able to pay the mortgage or rent on time?No05/03/2024In the past 12 months, how many times have you moved where you were living? At any time in the past 12 months, were you homeless or living in a halfway (including now)?No05/03/2024Food InsecurityAnswerDate RecordedWithin the past 12 months, you worried that your food would run out before you got the money to buy more.Within the past 12 months, the food you bought just didn't last and you didn't have money to get more.Interpersonal Safety Domain Source: IP Abuse ScreeningAnswerDate RecordedPhysical scpktJevzju11/18/2024 Verbal cmqkrMoyjys50/18/2024Emotional tiubjKnekqz01/18/2024Financial abuseDenies 05/03/2024Sexual yfhsrJkrgkt42/18/2024CommentsNoSex and Gender InformationValueDate RecordedSex Assigned at NjdiaFxzvuf84/14/2023 6:51 PM EDT Legal FwjSmlagx69/10/2013 5:36 PM ESTGender XvywurdoFmdzms77/14/2023 6:51 PM EDT Sexual OrientationNot on file Last Filed Vital Signs Vital SignReadingTime TakenCommentsBlood Hryhlpkj217/7404 8:59 AM EDT Eppei7022/22/2025 8:59 AM ELZThyrzadpeol06 ??C (98.6 ??F)05/05/2024 11:40 AM EDT Respiratory Xbvg186111/05/2024 8:59 AM EDTOxygen Geraeijqdi70%11/05/2024 8:59 AM EDTInhaled Oxygen Concentration--Ejguej27.8 kg (167 lb)11/05/2024 8:59 AM EDT Fdqfkh406.5 cm (5' 2 )11/05/2024 8:59 AM EDTBody Mass Index30.54011/05/2024 8:59 AM EDT Plan of Treatment Health MaintenanceDue DateLast DoneCommentsDepression Lhhpjb2810/16/1979Hepatitis C wdanfb3010/15/1985Hepatitis B vaccine (1 of 3 - 19+ 3-dose series)10/15/1986 Pneumococcal 50+ years Vaccine (2 of 2 - PCV)Colonoscopy 10/15/2012Colorectal Cancer Pfgsdn0210/15/2012FIT/FOBT: Average risk10/15/2012 Fecal-DNA (Cologuard): Average risk10/15/2012Sigmoidoscopy/CT colonography 10/15/2012Lung Cancer Screening &/or Karwqgsijr49/01/2018Shingles vaccine (1 of 2)10/15/2017Breast cancer awkviw85, 01/09/2013A1C test (Diabetic or Prediabetic)/, 08/31/2019, 03/09/2019, Additional history existsFlu vaccine (#1)51, 05/19/2008COVID- 19 Vaccine ( season)03/17/20256182Egjzei36/12/369507/06/2025, 08/05/2023, 01/04/2023, Additional history existsDTaP/Tdap/Td vaccine (3 - Td or Tdap) 806/, 12/28/2007HIV lmdtws2008/21/2029Postponed from 10/15/1982 (Patient Refused)Pneumococcal 0-49 years HbkclolJsnejrifyvny06/19/2012Hepatitis A vaccineAged OutNo longer eligible based on patient's age to complete this topicHib vaccineAged OutNo longer eligible based on patient's age to complete this topicMeningococcal (ACWY) vaccineAged OutNo longer eligible based on patient's age to complete this topicMeningococcal B vaccineAged OutNo longer eligible based on patient's age to complete this topicPolio vaccineAged OutNo longer eligible based on patient's age to complete this topic Medical Devices ImplantedTypeAreaManufacturerDevice IdentifierShelf Expiration DateModel / Serial / LotStent Coronary Abdulkadir Glasscock Rx 3x38 Mm Zotarolimus Elut - [id number] Implanted:Qty: 1 on 05/03/20[facility]MEDTRONIC VASCULAR-[id number]/10/2026 [id number] / / [id number] Coronary Abdulkadir Glasscock Rx 3x18 Mm Zotarolimus Elut - [id number] Implanted:Qty: 1 on 05/03/2024 [facility] stentsMEDTRONIC VASCULAR-[id number]/09/2026 [id number] / / [id number] Coronary [place] Glasscock Rx 3x26 Mm Zotarolimus Elut - [id number] Implanted:Qty: 1 on 05/03/2024 [facility] stentsMEDTRONIC VASCULAR-[id number]/ [id number] / / [id number] Procedures Procedure NamePriorityDate/TimeAssociated DiagnosisCommentsLIPID PANELRoutine 09/25/2024 8:05 AM EDT Pure hypercholesterolemia HEMOGLOBIN D2JSpcxwfi32/15/2020 Preventative health care KADEN DIGITAL SCREEN W OR WO CAD QLRSRMZHRAbecvcb51/12/2018 1:21 PM EDT Screening mammogram, encounter for from Last 3 Months or Most Recently Relevant to Health Maintenance Results * Lipid Panel (09/25/2024 8:05 AM EDT)ComponentValueRef RangeTest MethodAnalysis TimePerformed AtPathologist SignatureCholesterol, Slbbm8902 - 199 mg/dL 09/25/2024 8:05 AM EDTMERCY LABORATORIESComment: Cholesterol Guidelines: <200 Desirable 200-240 ??Borderline >240 Undesirable HDL67>40 mg/dL09/25/2024 8:05 AM EDTMERCY LABORATORIESComment: HDL Guidelines: <40 Undesirable 40-59 ?Borderline >59 Desirable LDL Jzbwyxgrron198 - 100 mg/dL09/25/2024 8:05 AM EDTMERCY LABORATORIESComment: LDL Guidelines: <100 Desirable 100-129 ?? Near to/above Desirable 130-159 ?? Borderline >159 Undesirable Direct (measured) LDL and calculated LDL are not interchangeable tests. Chol/HDL Ratio2.503 8:05 AM EDTMERCY TEKMVQBCHUIGYtxdhigkbeqcd898<150 mg/dL09/25/2024 8:05 AM EDTMERCY LABORATORIESComment: Triglyceride Guidelines: <150 Desirable 150-199 ??Borderline 200-499 ??High >499 Very high Based on AHA Guidelines for fasting triglyceride, April 2012. HKNP700 - 30 mg/dL09/25/2024 8:05 AM EDTMERCY LABORATORIESSpecimen (Source) Anatomical Location / LateralityCollection Method / VolumeCollection Time Received TimeBloodBLOOD SPECIMEN / Njvufln6109/25/2024 8:05 AM EDT09/25/2024 8:10 AM EDT Narrative Authorizing ProviderResult TypeResult StatusRegina Ramos 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 - NPCHEMISTRY ORDERABLESFinal ResultPerforming OrganizationAddressCity/State/ZIP CodePhone Number [facility] [place] [address], [facility] [phone] * KADEN DIGITAL SCREEN W CAD BILATERAL (01/25/2018 1:21 PM EDT)Anatomical Region LateralityModalityBreastBilateralMammographySpecimen (Source)Anatomical Location / LateralityCollection Method / VolumeCollection TimeReceived Time 01/25/2018 1:23 PM EDT Impressions 01/26/2018 11:48 AM EDT No mammographic evidence of malignancy BIRADS: BIRADS - CATEGORY 1 Negative, no evidence of malignancy. ??Normal interval follow-up is recommended in 12 months. OVERALL ASSESSMENT - NEGATIVE A letter of notification will be sent to the patient regarding the results. [employer] [place] recommends annual mammograms for women 40 years and older. Narrative 01/26/2018 11:48 AM EDT EXAMINATION: BILATERAL DIGITAL SCREENING MAMMOGRAM, 01/25/2018 TECHNIQUE: CC and MLO views of the left and right breasts were obtained. ??Computer aided detection was utilized in the interpretation of this exam. Digital breast tomosynthesis also utilized. COMPARISON: 01/09/2013 HISTORY: Screening. ??No personal or family history of breast cancer. ??No prior breast interventions. FINDINGS: Breasts are composed of scattered fibroglandular tissue. ??There is no dominant mass, suspicious cluster of microcalcification or area of architectural distortion. Procedure Note Lm Prather MD - 01/26/2018 EXAMINATION: BILATERAL DIGITAL SCREENING MAMMOGRAM, 01/25/2018 TECHNIQUE: CC and MLO views of the left and right breasts were obtained. Computeraided detection was utilized in the interpretation of this exam. Digitalbreast tomosynthesis also utilized. COMPARISON: 01/09/2013 HISTORY: Screening. No personal or family history of breast cancer. No priorbreast interventions. FINDINGS: Breasts are composed of scattered fibroglandular tissue. There is no dominant mass, suspicious cluster of microcalcification or area of architectural distortion. IMPRESSION: No mammographic evidence of malignancy BIRADS: BIRADS - CATEGORY 1 Negative, no evidence of malignancy. Normal interval follow-up is recommended in 12 months. OVERALL ASSESSMENT - NEGATIVE A letter of notification will be sent to the patient regarding theresults. The [employer] [place] recommends annual mammograms for women40 years and older. Authorizing ProviderResult TypeResult StatusGrace Lawrence 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 - CNPIMG MAMMOGRAPHY ORDERABLESFinal Result from Last 3 Months or Most Recently Relevant to Health Maintenance Insurance Advance Directives * Full Code (Latest Code Status on File) Date ActivatedDate UefygvvmybyVrszcygt09/18/2024 2:45 05/05/2024 5:25 PM
--- OUTSIDE RECORDS SUMMARY | 2025-07-04 12:59 | XMS_ITS | Encounter Summary ---
Author Organization [facility] tem Address [id number] [place] [address] Care Team Providers Care Golf Coach Name Role Phone No Pcp, No Pcp Primary Care Provider Unavailabl e Reason for Referral * Medication Prior Authorization - Pending ReviewSpecialtyDiagnoses / Procedures Referred By ContactReferred To Contact Diagnoses Coronary artery disease of [place] artery of [place] heart with stable angina pectoris Coronary artery disease involving [place] coronary artery of [place] heart with refractory angina pectoris ST elevation myocardial infarction involving right coronary artery ([facility]) History of percutaneous coronary intervention Dwayne Altman APRN-CNP [address] [place] [address] Phone: tel: fax: Referral IDStatusReasonStart DateExpiration DateVisits RequestedVisits [id number] Encounter Details DateTypeDepartmentCare Team (Latest Contact Info)Arhgxspmgag04/09/2025Telephone [facility] - Pharmacy Medication Management [address] [place] [address] Jv Parra, [facility] [address] [place], [place] [id number] Social History Tobacco UseTypesPacks/DayYears UsedDateSmoking Tobacco: FormerCigarettes Smokeless Tobacco: NeverAlcohol UseStandard Drinks/WeekCommentsYes0 (1 standard drink = 0.6 oz pure alcohol)[facility] UtilitiesAnswerDate RecordedIn the past 12 months has the electric, gas, oil, or water company threatened to shut off services in your home?No4AUDIT-CAnswerDate RecordedQ1: How often do you have a drink containing alcohol?2-4 times a month06/05/2024Q2: How many drinks containing alcohol do you have on a typical day when you are drinking?1 or 2 06/05/2024Q3: How often do you have six or more drinks on one occasion?Never 06/05/2024HQ-2AnswerDate RecordedTotal Zjvgd61008/05/2023RAPARE - Transportation AnswerDate RecordedIn the past 12 months, has lack [...] stay in as a part of a household?No 4ChildcareAnswerDate KijseyvyBebewyvtnVrtcioh35/11/2019EmploymentAnswer Date OhcqaemaTdbltihnfbPtfgmwl70/11/2019Hunger ScreeningAnswerDate Recorded Within the past 12 months we worried whether our food would run out before we got money to buy more.Never True03/18/2025Within the past 12 months the food we bought just didn't last and we didn't have money to get more.Never True 03/18/2025Purpose - LifeAnswerDate RecordedPurpose and direction in lifeUnknown 1CommentsNoSex and Gender InformationValueDate RecordedSex Assigned at BirthNot on fileLegal LabOazide17/04/2015 7:30 PM EDTGender Identity Not on fileSexual OrientationNot on filedocumented as of this encounter Miscellaneous Notes * Telephone Encounter - Jv Parra [facility] - 06/24/2025 1:48 PM EST Called patient to discuss tolerability of the Wegovy. Also needed to discuss future refills. Patient reports taking two doses of the Wegovy so far. She has noticed some nausea and appetite reduction. No serious issues noted at this time. Patient reports she has received numerous calls from [facility] stating they have reached out to the provider for refills. She states she was told they only carry the 2.4 mg dose of Wegovy. It would be unsafe to increase to 2.4 mg after only taking four weeks of 0.25 mg. Called Noe and spoke to her patient advocate. She reports patient can continue to fill the lower doses at her retail pharmacy but once she gets to the 2.4 mg dose would need to go through [facility]. Will plan to continue to utilize [facility] until she reaches the 2.4 mg dose. Called patient and left message informing her of this. DId request call back to schedule visit in mid July. documented in this encounter Plan of Treatment DateTypeDepartmentCare Team (Latest Contact Info)Cxzdejrgysn54/05/2026 2:00 PM ESTOffice Visit [facility] [address] [place] [id number] Facundo Cabrera PA-C [address] [place] [address] documented as of this encounter Goals GoalPatient Goal TypeAssociated ProblemsRecent ProgressPatient-Stated?Author <enter goal here> Key Mckeon RN Note: Evaluation of progress towards goal: plan home with homecare and family support vs short snf stay documented as of this encounter Visit Diagnoses Diagnosis Coronary artery disease of [place] artery of [place] heart with stable angina pectoris- Primary Coronary artery disease involving [place] coronary artery of [place] heart with refractory angina pectoris ST elevation myocardial infarction involving right coronary artery (CMS-HCC) History of percutaneous coronary intervention documented in this encounter Additional Health Concerns AssessmentNoted TimePHQ-9 Depression Total Score: 10:12 AM EST documented as of this encounter Care Teams Team MemberRelationshipSpecialtyStart DateEnd Date No Pcp, [place] [address] PCP - GeneralFamily Medicine03/18/25documented as of this encounter
--- NOTE | 2025-07-04 15:25 | P.DS_ITS ---
DS: Providers Provider Date of admission: 07/03/25 15:17 Primary care physician: Non-Staff PhysicianMD Admitting clinician: JOSE RAFAEL ROMAN Attending physician on admission: JOSE RAFAEL ROMAN Attending physician on discharge: JOSE RAFAEL ROMAN Discharging clinician: JOSE RAFAEL ROMAN DS: Diagnosis Discharge Diagnosis (1) Hypotension: (2) CASEY (acute kidney injury): (3) Acute dehydration: (4) Hypertension: (5) Status post double vessel coronary artery bypass: (6) History of heart artery stent: (7) Viral URI: (8) Sinusitis, acute: DS: Summary Hospital Course Hospital Course: Guerline Danielson is a 59 y/o F, h/o CAD s/p stent placement in 2023, s/p CABG, reported recent stress test, presented to [place] emergency room on 07/03/2025 with generalized weakness, found to have CASEY and orthostatic hypotension prompting request for medical admission. Started on IV hydration, lisinopril and bumex held, renal function and blood pressure improved. Echocardiogram showed EF 65%. She did have persistent sinusitis with fever, started on 5 day course of azithromycin. Discharged on 07/04/25 in improved condition. Time Spent with Patient Time attestation: Total time spent providing and/or coordinating discharge services: Exam Narrative Exam Narrative: General: cooperative and tired appearing Orientation: alert, awake and oriented x3 Head: normal to inspection Neck: normal visual inspection Cardio: no JVD, regular rate, regular rhythm Chest palpation & inspection: normal inspection of the chest Resp Effort & Inspection: normal respiratory effort Abd: soft, non-tender, non-distended Extremities: Warm well perfused, no edema Constitutional Vital Signs, click to edit/add: Last Vital Signs Temp 98.8 F 07/04/25 15:01 Pulse 67 07/04/25 15:01 Resp 16 07/04/25 15:01 BP 134/72 07/04/25 15:01 Pulse Ox 94 L 07/04/25 15:01 O2 Del Method Room Air 07/04/25 15:01 DS: Data Data Completed and Pending Labs on day of discharge: Labs from last 24 hours 07/04/25 07/04/25 09:04 05:05 WBC 2.3 L RBC 3.30 L Hgb 9.9 L Hct 30.2 L MCV 91.5 MCH 30.0 MCHC 32.8 RDW 13.0 Plt Count 136 L MPV 9.1 L Seg Neuts % (Manual) 75.0 Lymphocytes % (Manual) 16.0 L Atypical Lymphs % (Man) 1.0 Monocytes % (Manual) 8.0 Eosinophils % (Manual) 0.0 L Basophils % (Manual) 0.0 L Neutrophils # (Manual) 1.72 Lymphocytes # (Manual) 0.36 L Abs Atypical Lymphs Man 0.02 Monocytes # (Manual) 0.18 L Eosinophils # (Manual) 0.00 Basophils # (Manual) 0.00 Sodium 136 Potassium 4.0 Chloride 109 H Carbon Dioxide 23.2 Anion Gap 7.8 BUN 14.0 Creatinine 1.27 H Est GFR ( Amer) 53 L Est GFR (Non-Af Amer) 43 L BUN/Creatinine Ratio 11.0 Glucose 108 H Calcium 8.1 L Magnesium 2.2 Streptococcus Screen Negative Discharge Plan Discharge Disposition: Home, Self-Care Discharge Medications: New azithromycin 250 mg tablet 250 mg PO DAILY 4 Days Qty: 4 0RF Rx Instructions: start on day 2 of therapy, 07/05/25 Continued clopidogrel [Plavix] 75 mg tablet 75 mg PO QPM rosuvastatin 40 mg tablet 40 mg PO QPM Allergy Relief (loratadine) 10 mg capsule 10 mg PO DAILY PRN (Reason: allergic symptoms) Wegovy 0.25 mg/0.5 mL pen injector 0.25 mg subcut FR@2000 ezetimibe [Zetia] 10 mg tablet 10 mg PO QPM Held lisinopril 5 mg tablet 5 mg PO QPM Hold Instructions: Resume on 07/11/25. To be resumed as outpatient, cardiology or PCP Discontinued bumetanide 1 mg tablet 1 mg PO BID potassium chloride 10 mEq tablet,ER particles/crystals 10 meq PO QPM Print Language: Senegalese Patient Instructions: Azithromycin (By mouth), Acute Kidney Injury (DC), Hypotension (DC) Forms: Portal Instructions Follow Up Appointments: Dr Baker- at 10:30 am [address] [place] [address] [facility] Jul @ 1:[address] Phone Amanda [phone] with BROOKLYN Cabrera
[2025-07-04] MEDS: AZITHROMYCIN 250 MG TABLET 500 MG PO (15:35)
--- NOTE | 2025-07-04 15:51 | CA_ITS ---
Patient Name: TAO BARNETT MR#: [id number] : 1965 Exam Date: 07/04/2025 Ordering Doctor: JOSE RAFAEL ROMAN ECHOCARDIOGRAM REPORT PROCEDURE: CA ECHO DOPPLER COMPLETE INDICATIONS: hypotension COMPARISON: None. DESCRIPTION: COMPLETE ECHOCARDIOGRAM Real-time transthoracic echocardiography with 2D, M-mode, spectral and color flow Doppler performed. QUALITY: Technical quality was good. LEFT VENTRICLE: Normal chamber size. Borderline left ventricular hypertrophy. Global left ventricular systolic function is normal. Visual estimation of left ventricular ejection fraction is 65-70%. LV EF: Normal left ventricular ejection fraction, (>55%). DIASTOLIC: Normal diastolic function. ATRIAL SEPTUM: LEFT ATRIUM: Normal chamber size. RIGHT ATRIUM: Normal chamber size. RIGHT VENTRICLE: Normal chamber size. Normal right ventricular systolic function. TRICUSPID VALVE: Normal mobility and thickness. No stenosis with mild regurgitation. No evidence of pulmonary hypertension. RVSP 26 mmHg. MITRAL VALVE: Normal mobility and thickness. No evidence of mitral valve stenosis. There is no mitral annular calcification. Trivial mitral regurgitation. AORTIC VALVE: Normal trileaflet appearance. Thickened aortic valve. Normal leaflet mobility. No evidence of aortic valve stenosis. No aortic regurgitation. AORTIC ROOT: Normal diameter and appearance. The aortic root measures 2.8 cm. The ascending aorta is normal in size measuring 2.5 cm. PULMONIC VALVE: Normal thickness and mobility. No stenosis. Trivial regurgitation. PERICARDIUM: Trivial pericardial effusion. IVC: Collapses with inspirations. The IVC is normal in size measuring 1.5 cm. PLEURA: CONCLUSION: 1. Normal left ventricular size and systolic function. Estimated LVEF is 65 to 70%. 2. Normal right ventricular size and systolic function. 3. No significant valvular dysfunction. 4. Normal diastolic function. 5. Normal right-sided pressures. 6. Trivial anterior pericardial effusion. Adult Echocardiography Procedure Report Left Ventricle LVEDD (3.7 - 5.6 cm): 4.46 cm LVESD (2.2 - 4.0 cm): 2.83 cm LVIVS thickness (0.6 - 1.2 cm): 0.82 cm LVPW thickness (0.5 - 1.0 cm): 0.99 cm e': 0.17 m/s E - e': 4.19 LVOT Max Gradient: 3.99 mm[Hg], 4.16 mm[Hg] LVOT Area (cm2): 1.01 m/s Peak Velocity (LVOT): 1.00 m/s, 1.02 m/s Mean Velocity (LVOT): 0.70 m/s LVOT Diameter 1.86 cm Left Ventricular Ejection Fraction: 65-70% Left Atrium LA Volume Index (2D A2C): 26.10 ml/m2 Left Atrium Systolic Dimension: 3.64 cm Mitral Valve MV E to A Ratio: 1.43, 1.51 Mitral Valve A-Wave Peak Velocity: 0.49 m/s Mitral Valve E-Wave Peak Velocity: 0.72 m/s Right Ventricle RV Internal Diastolic Dimension: 3.26 cm Aorta AO Root Diam: 2.83 cm Ascending Ao Diam: 2.53 cm Aortic Valve AoV Area (Peak Giovani): 2.26 cm2, 2.24 cm2 AoV Area (VTI): 2.33 cm2, 2.30 cm2 Peak Velocity(Antegrade Flow): 1.21 m/s Peak Gradient(Antegrade Flow): 5.83 mm[Hg] Mean Velocity(Antegrade Flow): 0.83 m/s Mean Gradient(Antegrade Flow): 3.17 mm[Hg] Velocity Time Integral: 27.29 cm Tricuspid Valve Peak Velocity (Regurgitant Flow): 2.18 m/s, 2.33 m/s, 2.39 m/s Pulmonic Valve Mean Gradient: 1.39 mm[Hg], 2.68 mm[Hg] Mean Velocity: 0.55 m/s, 0.78 m/s Peak Velocity: 0.89 m/s Peak Gradient: 2.42 mm[Hg], 4.09 mm[Hg] Right Atrium Right Atrium Systolic Pressure: 29.77 ml, 29.77 ml Dictated by: Orlin Malcolm M.D. on 07/04/2025 at 15:07 Approved by: Orlin Malcolm M.D. on 07/04/2025 at 15:11
--- NOTE | 2025-07-07 12:57 | CM.DCFOLLOWU ---
Person spoke with: Guerline How are you feeling? Better How is your pain? No pain Did you understand your discharge instructions? Yes Do you have any questions about your discharge instructions? No Were you given any prescriptions at discharge? Yes Were you able to get your prescriptions filled? Yes Do you understand how to take your medications as ordered? Yes Do you have any questions about your follow up appointment and do you plan to keep your follow up appointment? No questions. She already went to one follow up appt today and is planning on going to the other schedule appt. Is there anything else that you would like to discuss? No Questions/Comments/Concerns/Other:
== END 2025-07-04 15:57 | disposition home or self-care (01) | DRG 684 ==
LOC: ER 15:28 → MS 21:13
PROVIDERS: Admitting Provider Student in an Organized Health Care Education/Training Program; Emergency Provider Emergency Medicine; Visit Provider Student in an Organized Health Care Education/Training Program
DX: N17.9 Acute kidney failure, unspecified (principal); E86.0 Dehydration; I95.9 Hypotension, unspecified; J01.90 Acute sinusitis, unspecified; I25.10 Atherosclerotic heart disease of native coronary artery without angina pectoris; Z95.1 Presence of aortocoronary bypass graft; J06.9 Acute upper respiratory infection, unspecified; Z95.5 Presence of coronary angioplasty implant and graft; Z90.49 Acquired absence of other specified parts of digestive tract; I10 Essential (primary) hypertension; Z90.711 Acquired absence of uterus with remaining cervical stump; Z79.85 Long-term (current) use of injectable non-insulin antidiabetic drugs
CPT/HCPCS: 36415; 71045; 80048; 80053; 81001; 83605; 83735; 83880; 84484; 85007; 85027; 85610; 87040; 87070; 87804; 87811; 87880; 93005; 93306; 96360; 96361; 99285; J0696; J1650